=== PATIENT | male | born 1935 | race Two or more races ===

== ENCOUNTER → 2018-01-23 | Outpatient (CLI) | payer MEDICARE ==
[~2018-01-23] MED LIST: ACYC800T99 PO; AGGRENOX PO; ALBUTEROL INHALER; AML5 PO; AMLO-96 PO; AMLO-99 PO; ASP325 PO; ASPI-757 PO; ASPI81TA94 PO; BEN20 PO; BENA20TA8 PO; CLO75 PO; CLOP75TA PO; CPAP; FLU45SYR17 IM; HCTZ25 PO; HYDR-2966 PO; LEVE750T48 PO; LEVO50TA86 PO; LEVO50TA89 PO; LEVO75TA73 PO; LISI-374 PO; LISI20TA29 PO; LOSA50TA72 PO; METO-1 PO; METO-253 PO; METO25TA93 PO; OXYGENHOME INH; PNEI IJ; PRAV40TA77 PO; PRAV40TA78 PO; PRE20 PO; RAN150 PO; SIMV-1 PO; SIMV-49 PO; SIMV-54 PO; SIMV-59 PO; TRIA5T TOP; UNKNOWN BP MED; Z-PAK; [UNRECOGNIZED DRUG - CODE] PO
[2018-01-23 09:11] LABS: LDL CHOLESTEROL 61 mg/dl
== END ==
LOC: LAB 07:49
PROVIDERS: ATTEND Internal Medicine
DX: E03.9 Hypothyroidism, unspecified (principal); E78.00 Pure hypercholesterolemia, unspecified; I10 Essential (primary) hypertension
CPT/HCPCS: 36415; 82040; 82247; 82310; 82374; 82435; 82465; 82565; 82947; 83718; 84075; 84132; 84155; 84295; 84443; 84450; 84460; 84478; 84520

== ENCOUNTER 2018-01-26 17:40 | Emergency (ER) | payer MEDICARE ==
--- NOTE | 2018-01-26 17:52 | ER Report ---
History and Physical Time Seen By MD: 17:52 HPI/ROS CHIEF COMPLAINT: Fall, bruising HISTORY OF PRESENT ILLNESS: 82-year-old male patient presents to emergency room with complaint of a fall. Patient's daughter states that yesterday morning her mother heard a loud thud, she went to check on her and found him lying on the ground. They're unsure what the underlying cause of the fall was. He states that they did watch him throughout the day and then again today. He did have a seizure last night, however he does have a known seizure disorder secondary to a stroke. Patient stopped her states that he was unsteady with is moving around today. She also states he's been very tired. That is not normal for him so they brought him in for further evaluation. They have not given him any new medication. He states that he has seen his neurologist who increased his dose of his seizure medication. REVIEW OF SYSTEMS: Respiratory: No cough, no dyspnea. Cardiovascular: No chest pain, no palpitations. Gastrointestinal: No vomiting, no abdominal pain. Musculoskeletal: As noted above Allergies: Coded Allergies: No Known Drug Allergies (Verified , 01/26/18) Home Meds Active Scripts Simvastatin (SIMVASTATIN) 20 Mg Tablet, 1 TAB PO HS, #90 TAB 3 Refills Prov:MELITON MORALEZ MD 10/22/17 Losartan Potassium (LOSARTAN POTASSIUM) 50 Mg Tablet, 1 TAB PO QDAY, #90 TAB 3 Refills Prov:MELITON MORALEZ MD 10/22/17 Clopidogrel Bisulfate (CLOPIDOGREL) 75 Mg Tablet, 1 TAB PO QDAY, #90 TAB 3 Refills Prov:MELITON MORALEZ MD 06/04/17 Metoprolol Tartrate (METOPROLOL TARTRATE) 50 Mg Tab, 1 TAB PO BID, #180 TAB 3 Refills Prov:MELITON MORALEZ MD 01/28/17 Amlodipine Besylate (AMLODIPINE BESYLATE) 10 Mg Tablet, 1 TAB PO QDAY, #90 TAB 4 Refills Prov:MELITON MORALEZ MD 11/21/16 Levothyroxine Sodium (LEVOTHYROXINE SODIUM) 50 Mcg Tablet, 1 TAB PO QDAY, #90 TAB 3 Refills Prov:MELITON MORALEZ MD 10/24/16 Reported Medications Levetiracetam (LEVETIRACETAM) 750 Mg Tablet, 750 MG PO BID, TAB 5/6/18 Cpap (CPAP HOME) Inha, HS 06/12/17 Oxygen (OXYGEN) Inha, 2 L INH HS, L 04/23/16 Aspirin (ASPIRIN) 81 Mg Tab.chew, 1 TAB PO QDAY, TAB.CHEW 01/11/16 Discontinued Scripts Levetiracetam (LEVETIRACETAM) 750 Mg Tablet, 1 TAB PO BID, #180 TAB Prov:MELITON MORALEZ MD 10/10/17 Past Medical/Surgical History Patient has a past medical history of CVA, TIA, seizures, hypertension, hyperlipidemia. Patient has past surgical history of surgery to remove polyps, stents placed in back of neck, head truly blockage. Reviewed Nurses Notes: Yes Hx Smoking: No Smoking Status: Never Smoker Exposure to Second Hand Smoke?: No Hx Substance Use Disorder: No Constitutional Vital Sign - Last 24 Hours 01/26/18 01/26/18 01/26/18 01/26/18 17:45 17:52 17:55 18:00 Temp 98.4 Pulse 86 84 Resp 16 B/P (MAP) 143/80 143/80 (101) 138/83 (101) Pulse Ox 93 94 O2 Delivery Room Air 01/26/18 01/26/18 01/26/18 01/26/18 18:10 18:14 18:14 18:16 Pulse 85 82 89 93 B/P (MAP) 133/85 (101) 138/83 (101) 129/86 (100) 133/85 (101) 129/86 (100) Pulse Ox 93 01/26/18 01/26/18 01/26/18 01/26/18 18:21 18:30 18:36 18:45 Pulse 79 ??? B/P (MAP) ???/??? (1665) 143/80 (101) Pulse Ox 95 01/26/18 01/26/18 01/26/18 01/26/18 18:51 19:00 19:08 19:45 Pulse 82 85 Resp 16 B/P (MAP) 148/79 (102) 150/91 (110) 138/82 (100) Pulse Ox 94 92 O2 Delivery Room Air Physical Exam General Appearance: The patient is alert, has no immediate need for airway protection and no current signs of toxicity. ENT: Tympanic membranes are pearly-crenshaw, auditory canals are patent, mucous membranes are moist. Respiratory: Chest is non tender, lungs are clear to auscultation. Cardiac: regular rate and rhythm Gastrointestinal: Abdomen is soft and non tender, no masses, bowel sounds normal. Musculoskeletal: Neck: Neck is supple and non tender. Extremities have full range of motion and are non tender. Skin: No rashes or lesions. DIFFERENTIAL DIAGNOSIS: After history and physical exam differential diagnosis was considered for fall, dizziness, orthostatic hypotension, dehydration, [place], seizure. Medical Decision Making Data Points Result Diagram: 01/26/18180801/26/181808 Laboratory Hematology Test 01/26/18 18:09 01/26/18 19:05 Red Blood Count 5.30 M/uL (4.00-5.60) Mean Corpuscular Volume 70.7 fL (80.0-96.0) Mean Corpuscular Hemoglobin 24.1 pg (26.0-33.0) Mean Corpuscular Hemoglobin Concent 34.1 g/dL (32.0-36.0) Red Cell Distribution Width 16.3 % (11.5-14.5) Mean Platelet Volume 8.1 fL (7.2-11.1) Neutrophils (%) (Auto) 76.9 % (39.4-72.5) Lymphocytes (%) (Auto) 12.7 % (17.6-49.6) Monocytes (%) (Auto) 8.2 % (4.1-12.4) Eosinophils (%) (Auto) 1.5 % (0.4-6.7) Basophils (%) (Auto) 0.7 % (0.3-1.4) Nucleated RBC Relative Count (auto) 0.0 /100WBC Neutrophils # (Auto) 5.8 K/uL (2.0-7.4) Lymphocytes # (Auto) 1.0 K/uL (1.3-3.6) Monocytes # (Auto) 0.6 K/uL (0.3-1.0) Eosinophils # (Auto) 0.1 K/uL (0.0-0.5) Basophils # (Auto) 0.0 K/uL (0.0-0.1) Nucleated RBC Absolute Count (auto) 0.00 K/uL Sodium Level 135 mmol/L (137-145) Potassium Level 3.6 mmol/L (3.5-5.0) Chloride Level 100 mmol/L (98-107) Carbon Dioxide Level 23 mmol/L (22-30) Blood Urea Nitrogen 18 mg/dl (9-21) Creatinine 1.00 mg/dl (0.66-1.25) Glomerular Filtration Rate Calc > 60.0 Random Glucose 91 mg/dl (75-110) Calcium Level 8.9 mg/dl (8.4-10.2) Total Bilirubin 0.7 mg/dl (0.2-1.3) Aspartate Amino Transf (AST/SGOT) 26 U/L (0-35) Alanine Aminotransferase (ALT/SGPT) 21 U/L (0-56) Alkaline Phosphatase 64 U/L (0-126) Troponin I < 0.012 ng/ml Total Protein 6.3 gm/dl (6.3-8.2) Albumin 3.6 g/dl (3.5-5.0) Urine Color Straw Urine Clarity Clear Urine pH 6.0 pH (4.8-9.5) Urine Specific [facility] [place] 1.004 Urine Protein Negative mg/dL (NEGATIVE) Urine Glucose (UA) Negative mg/dL (NEGATIVE) Urine Ketones Negative mg/dL (NEGATIVE) Urine Blood Negative (NEGATIVE) Urine Nitrite Negative (NEGATIVE) Urine Bilirubin Negative (NEGATIVE) Urine Urobilinogen Negative mg/dL (0.2-1.9) Urine Leukocyte Esterase Negative (NEGATIVE) Urine RBC None /HPF (0-2/HPF) Urine WBC <1 /HPF (0-5/HPF) Urine Squamous Epithelial Cells Few /LPF (</=FEW) Urine Bacteria Negative /HPF (NONE-FEW) Urine Mucus None /HPF (NONE-FEW) Chemistry Test 01/26/18 18:09 01/26/18 19:05 White Blood Count 7.5 k/uL (4.5-11.0) Red Blood Count 5.30 M/uL (4.00-5.60) Hemoglobin 12.8 g/dL (14.0-18.0) Hematocrit 37.5 % (42.0-52.0) Mean Corpuscular Volume 70.7 fL (80.0-96.0) Mean Corpuscular Hemoglobin 24.1 pg (26.0-33.0) Mean Corpuscular Hemoglobin Concent 34.1 g/dL (32.0-36.0) Red Cell Distribution Width 16.3 % (11.5-14.5) Platelet Count 181 K/uL (150-450) Mean Platelet Volume 8.1 fL (7.2-11.1) Neutrophils (%) (Auto) 76.9 % (39.4-72.5) Lymphocytes (%) (Auto) 12.7 % (17.6-49.6) Monocytes (%) (Auto) 8.2 % (4.1-12.4) Eosinophils (%) (Auto) 1.5 % (0.4-6.7) Basophils (%) (Auto) 0.7 % (0.3-1.4) Nucleated RBC Relative Count (auto) 0.0 /100WBC Neutrophils # (Auto) 5.8 K/uL (2.0-7.4) Lymphocytes # (Auto) 1.0 K/uL (1.3-3.6) Monocytes # (Auto) 0.6 K/uL (0.3-1.0) Eosinophils # (Auto) 0.1 K/uL (0.0-0.5) Basophils # (Auto) 0.0 K/uL (0.0-0.1) Nucleated RBC Absolute Count (auto) 0.00 K/uL Glomerular Filtration Rate Calc > 60.0 Calcium Level 8.9 mg/dl (8.4-10.2) Total Bilirubin 0.7 mg/dl (0.2-1.3) Aspartate Amino Transf (AST/SGOT) 26 U/L (0-35) Alanine Aminotransferase (ALT/SGPT) 21 U/L (0-56) Alkaline Phosphatase 64 U/L (0-126) Troponin I < 0.012 ng/ml Total Protein 6.3 gm/dl (6.3-8.2) Albumin 3.6 g/dl (3.5-5.0) Urine Color Straw Urine Clarity Clear Urine pH 6.0 pH (4.8-9.5) Urine Specific [facility] [place] 1.004 Urine Protein Negative mg/dL (NEGATIVE) Urine Glucose (UA) Negative mg/dL (NEGATIVE) Urine Ketones Negative mg/dL (NEGATIVE) Urine Blood Negative (NEGATIVE) Urine Nitrite Negative (NEGATIVE) Urine Bilirubin Negative (NEGATIVE) Urine Urobilinogen Negative mg/dL (0.2-1.9) Urine Leukocyte Esterase Negative (NEGATIVE) Urine RBC None /HPF (0-2/HPF) Urine WBC <1 /HPF (0-5/HPF) Urine Squamous Epithelial Cells Few /LPF (</=FEW) Urine Bacteria Negative /HPF (NONE-FEW) Urine Mucus None /HPF (NONE-FEW) Urinalysis Test 01/26/18 19:05 Urine Color Straw Urine Clarity Clear Urine pH 6.0 pH (4.8-9.5) Urine Specific [facility] [place] 1.004 Urine Protein Negative mg/dL (NEGATIVE) Urine Glucose (UA) Negative mg/dL (NEGATIVE) Urine Ketones Negative mg/dL (NEGATIVE) Urine Blood Negative (NEGATIVE) Urine Nitrite Negative (NEGATIVE) Urine Bilirubin Negative (NEGATIVE) Urine Urobilinogen Negative mg/dL (0.2-1.9) Urine Leukocyte Esterase Negative (NEGATIVE) Urine RBC None /HPF (0-2/HPF) Urine WBC <1 /HPF (0-5/HPF) Urine Squamous Epithelial Cells Few /LPF (</=FEW) Urine Bacteria Negative /HPF (NONE-FEW) Urine Mucus None /HPF (NONE-FEW) EKG/Imaging EKG Interpretation 12 lead EKG: Rhythm: Sinus rhythm with first-degree AV block [place]: normal QRS: normal ST segments: normal Imaging Examination: CHEST PA AND LAT Comparison: 01/11/2016. History: fall, dizzy Findings: Cardiac and hilar contour size is within normal limits. Mild chronic blunting of the right costophrenic angle. No new or enlarging consolidation or nodule. No peribronchial inflammation. No pneumothorax, edema, or effusion. Thoracic aortic atherosclerosis. No acute osseous abnormality. IMPRESSION: No findings of acute cardiopulmonary disease. Report Dictated By: Ryan Mcghee MD at 01/26/2018 7:16 PM Report E-Signed By: Ryan Mcghee MD at 01/26/2018 7:17 PM EXAMINATION: CT HEAD WITHOUT CONTRAST COMPARISON: 05/26/2013. HISTORY: Fall. Dizziness. Prior stroke. PROCEDURE: Noncontrast CT from the vertex through the skull base. One of the following dose optimization techniques was utilized in the performance of this exam: Automated exposure control; adjustment of the mA and/or kV according to the patient's size; or use of an iterative reconstruction technique. Specific details can be referenced in the facility's radiology CT exam operational policy. FINDINGS: Brain volume: Mild/moderate global volume loss. Hemorrhage/extra-axial fluid: None. Mass effect/midline shift/edema: None. Ischemia: No acute crenshaw-white differentiation loss. Ventricles and basal cisterns: Within normal limits. Posterior fossa: Mild asymmetric left cerebellar encephalomalacia as before. Vessels: Carotid and vertebrobasilar atherosclerosis. Right vertebral and basilar artery stents. Calvarium, skull base, and scalp: Negative. Visualized sinuses and orbits: Within normal limits. IMPRESSION: 1. No intracranial hemorrhage or mass effect. 2. No CT findings of acute ischemia. Report Dictated By: Ryan Mcghee MD at 01/26/2018 7:10 PM Report E-Signed By: Ryan Mcghee MD at 01/26/2018 7:14 PM Examination: HIP LEFT Comparison: None. History: fall, dizzy Findings: The pelvic ring is intact. Pubic symphysis and sacroiliac joint alignment is maintained. Arcuate lines of the sacrum are intact. Hip alignment is within normal limits and symmetric. Minimal hip joint space loss. The proximal left femur is intact. No femoral head or neck fracture. No soft tissue abnormality. IMPRESSION: No pelvis or left hip fracture or malalignment. Report Dictated By: Ryan Mcghee MD at 01/26/2018 7:17 PM Report E-Signed By: Ryan Mcghee MD at 01/26/2018 7:20 PM ED Course/Re-evaluation ED Course Patient was admitted to exam room, history and physical were obtained. Differential diagnoses were considered. On examination patient is alert and oriented, lungs are clear, heart is regular, patient does have bruising to the left buttock. A CBC, CMP, urinalysis, troponin, EKG, chest x-ray, CT scan of the head, x-ray of the left pelvis were done. The CBC, CMP, urinalysis was unremarkable, CT scan of the head was negative. EKG showed a sinus rhythm with a first-degree AV block, chest x-ray showed no acute cardiopulmonary processes, x-ray of the pelvis was negative. Troponin was also negative. I discussed findings with the patient has family. We discussed that the patient did have some tenderness to the left buttock, with those likely where he has some swelling and bruising into the muscle. LDL seemed normal I believe that him being limited states today and more tired is likely due to seizure. We'll go ahead and discharge patient home. He is follow-up with neurology his previous schedule. They're to return to emergency room if condition worsens. I discussed this with the patient and family who verbalized understanding and agreement with plan. Decision to Disposition Date: January 26, 2018 Decision to Disposition Time: 19:39 Depart Departure Latest Vital Signs Vital Signs Date Time Temp Pulse Resp B/P (MAP) Pulse Ox O2 Delivery O2 Flow Rate FiO2 01/26/18 19:45 85 16 138/82 (100) 92 Room Air 01/26/18 17:45 98.4 Impression: Primary Impression: Contusion, hip Additional Impressions: Fall Seizures Condition: Improved Disposition: HOME OR SELF-CARE Referrals: MELITON MORALEZ MD (PCP) Patient Instructions: Contusion in Adults (ED) Additional Instructions: Continue with current medications. Follow up with your neurologist, call tomorrow and let them know you were seen in the ER and see if they want you in sooner. Limit activity by how you are feeling. Get plenty of rest. Return to the ER if condition worsens. Follow up with your primary care provider in the next week. Problem Qualifiers Primary Impression: Contusion, hip Encounter type: initial encounter Laterality: left Qualified Codes: S70.02XA - Contusion of left hip, initial encounter Additional Impressions: Fall Encounter type: initial encounter Qualified Codes: W19.XXXA - Unspecified fall, initial encounter CHIQUITA TAVARES January 26, 2018 17:52
[2018-01-26] MEDS ORDERED: LEVE750T48 PO (17:58)
--- NOTE | 2018-01-26 18:09 | EKG ---
FACILITY: [facility] - [place] PATIENT NAME: FILIBERTO SCOTT : [id number] MR: [id number] V: [id number] EXAM DATE: ORDERING PHYSICIAN: CHIQUITA TAVARES TECHNOLOGIST: AMY Test Reason : ALTERED LOC Blood Pressure : / mmHG Vent. Rate : 076 BPM Atrial Rate : 076 BPM P-R Int : 236 ms QRS Dur : 090 ms QT Int : 362 ms P-R-T Axes : 039 -06 009 degrees QTc Int : 407 ms Sinus rhythm with 1st degree AV block Otherwise normal ECG When compared with ECG of 26-MAY-2013 09:17, QRS duration has decreased Confirmed by DERIAN LUTHER ([id number]) on 01/27/2018 7:10:13 AM Referred By: ANUSHA Confirmed By:DERIAN LUTHER
[2018-01-26 18:24] LABS: PLATELET COUNT, AUTOMATED 181 K/uL (150-450)
--- NOTE | 2018-01-26 19:16 | RADIOLOGY IMAGING REPORT ---
FACILITY: [facility] PATIENT NAME: Kwabena Zambrano : 1935 MR: [id number] V: [id number] EXAM DATE: ORDERING PHYSICIAN: CHIQUITA TAVARES TECHNOLOGIST: Location: [facility] [place] Patient: Kwabena Zambrano : 1935 Visit/Account:[id number] Date of Sevice: 01/26/2018 EXAMINATION: CT HEAD WITHOUT CONTRAST COMPARISON: 05/26/2013. HISTORY: Fall. Dizziness. Prior stroke. PROCEDURE: Noncontrast CT from the vertex through the skull base. One of the following dose optimizat ion techniques was utilized in the performance of this exam: Automated exposure control; adjustment o f the mA and/or kV according to the patient's size; or use of an iterative reconstruction technique. Specific details can be referenced in the facility's radiology CT exam operational policy. FINDINGS: Brain volume: Mild/moderate global volume loss. Hemorrhage/extra-axial fluid: None. Mass effect/midline shift/edema: None. Ischemia: No acute crenshaw-white differentiation loss. Ventricles and basal cisterns: Within normal limits. Posterior fossa: Mild asymmetric left cerebellar encephalomalacia as before. Vessels: Carotid and vertebrobasilar atherosclerosis. Right vertebral and basilar artery stents. Calvarium, skull base, and scalp: Negative. Visualized sinuses and orbits: Within normal limits. IMPRESSION: 1. No intracranial hemorrhage or mass effect. 2. No CT findings of acute ischemia. Report Dictated By: Ryan Mcghee MD at 01/26/2018 7:10 PM Report E-Signed By: Ryan Mcghee MD at 01/26/2018 7:14 PM WSN:[id number]
--- NOTE | 2018-01-26 19:20 | RADIOLOGY IMAGING REPORT ---
FACILITY: [facility] - [place] PATIENT NAME: Kwabena Zambrano : 1935 MR: [id number] V: [id number] EXAM DATE: ORDERING PHYSICIAN: CHIQUITA TAVARES TECHNOLOGIST: Location: [facility] Patient: Kwabena Zambrano : 1935 Visit/Account:[id number] Date of Sevice: 01/26/2018 Examination: CHEST PA AND LAT Comparison: 01/11/2016. History: fall, dizzy Findings: Cardiac and hilar contour size is within normal limits. Mild chronic blunting of the right costophrenic angle. No new or enlarging consolidation or nodule. No peribronchial inflammation. No pn eumothorax, edema, or effusion. Thoracic aortic atherosclerosis. No acute osseous abnormality. IMPRESSION: No findings of acute cardiopulmonary disease. Report Dictated By: Ryan Mcghee MD at 01/26/2018 7:16 PM Report E-Signed By: Ryan Mcghee MD at 01/26/2018 7:17 PM WSN:[id number]
--- NOTE | 2018-01-26 19:23 | RADIOLOGY IMAGING REPORT ---
FACILITY: [facility] PATIENT NAME: Kwabena Zambrano : 1935 MR: [id number] V: [id number] EXAM DATE: ORDERING PHYSICIAN: CHIQUITA TAVARES TECHNOLOGIST: Location: [facility] Patient: Kwabena Zambrano : 1935 Visit/Account:[id number] Date of Sevice: 01/26/2018 Examination: HIP LEFT Comparison: None. History: fall, dizzy Findings: The pelvic ring is intact. Pubic symphysis and sacroiliac joint alignment is maintained. Ar arash lines of the sacrum are intact. Hip alignment is within normal limits and symmetric. Minimal hi p joint space loss. The proximal left femur is intact. No femoral head or neck fracture. No soft tiss ue abnormality. IMPRESSION: No pelvis or left hip fracture or malalignment. Report Dictated By: Ryan Mcghee MD at 01/26/2018 7:17 PM Report E-Signed By: Ryan Mcghee MD at 01/26/2018 7:20 PM WSN:[id number]
[2018-01-26 19:45] VITALS: BP 138/82
== END 2018-01-26 19:51 | disposition home or self-care (01) ==
LOC: ER 17:54
DX: S70.02XA Contusion of left hip, initial encounter (principal); W19.XXXA Unspecified fall, initial encounter
CPT/HCPCS: 70450; 71046; 81001; 82040; 82247; 82310; 82374; 82435; 82565; 82947; 84075; 84132; 84155; 84295; 84450; 84460; 84484; 84520; 85025; 93005; 99284

== ENCOUNTER 2018-10-10 09:14 | Emergency (ER) | payer MEDICARE ==
[~2018-10-10 09:14] MED LIST changes: +AMLO-125 PO; +AMLO-127 PO; -AMLO-96 PO; -AMLO-99 PO; +BENA20TA64 PO; -BENA20TA8 PO; -LOSA50TA72 PO; +LOSA50TA80 PO; +SIMV-117 PO; -SIMV-59 PO
--- NOTE | 2018-10-10 09:20 | ER Report ---
History and Physical Time Seen By MD: 09:19 HPI/ROS CHIEF COMPLAINT: Fall HISTORY OF PRESENT ILLNESS: Patient is an 83-year-old male with multiple medical problems including history of prior stroke status post stroke patient with seizures. Patient had a slip and fall on the ice today with a fall on outstretched hand. Patient is right-hand dominant injury to left hand he has an obvious dinner fork deformity to the arm. Also complaining of low back pain he did not strike his head however he is on Plavix. REVIEW OF SYSTEMS: Constitutional: No fever, no chills. Eyes: No discharge. ENT: No sore throat. Cardiovascular: No chest pain, no palpitations. Respiratory: No cough, no shortness of breath. Gastrointestinal: No abdominal pain, no vomiting. Genitourinary: No hematuria. Musculoskeletal: No back pain, left wrist pain Skin: No rashes. Neurological: No headache. Allergies: Coded Allergies: No Known Drug Allergies (Verified , 10/10/18) Home Meds Active Scripts Hydrocodone Bit/Acetaminophen (HYDROCODON-ACETAMINOPHEN 5-325) 1 Each Tablet, 1 EACH PO Q6H for PAIN, #25 TAB 0 Refills Prov:MAYLIN RAMÍREZ MD 10/10/18 Simvastatin (SIMVASTATIN) 20 Mg Tablet, 1 TAB PO HS, #90 TAB 3 Refills Prov:MELITON MORALEZ MD 10/08/18 Clopidogrel Bisulfate (CLOPIDOGREL) 75 Mg Tablet, 1 TAB PO QDAY, #90 TAB 3 Refills Prov:MELITON MORALEZ MD 05/29/18 Levothyroxine Sodium (LEVOTHYROXINE SODIUM) 50 Mcg Tablet, 1 TAB PO QDAY, #90 TAB 2 Refills Prov:MELITON MORALEZ MD 02/21/18 Amlodipine Besylate (AMLODIPINE BESYLATE) 10 Mg Tablet, 1 TAB PO QDAY, #90 TAB 3 Refills Prov:MELITON MORALEZ MD 02/20/18 Metoprolol Tartrate (METOPROLOL TARTRATE) 50 Mg Tab, 1 TAB PO BID, #180 TAB 3 Refills Prov:MELITON MORALEZ MD 02/04/18 Losartan Potassium (LOSARTAN POTASSIUM) 50 Mg Tablet, 1 TAB PO QDAY, #90 TAB 3 Refills Prov:MELITON MORALEZ MD 10/22/17 Reported Medications Lacosamide (VIMPAT) 100 Mg Tab, 100 MG PO BID, TAB 10/10/18 Levetiracetam (LEVETIRACETAM) 750 Mg Tablet, 2 TAB PO BID, TAB 01/26/18 Oxygen (OXYGEN) Inha, 2 L INH HS, L 04/23/16 Aspirin (ASPIRIN) 81 Mg Tab.chew, 1 TAB PO QDAY, TAB.CHEW 01/11/16 Discontinued Reported Medications Cpap (CPAP HOME) Inha, HS 06/12/17 Past Medical/Surgical History Past medical history for seizures post stroke, 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 History of hyperlipidemia, hypertension, vertebral artery dissection status post stenting, anemia, coronary stenting, TURP Hx Smoking: No Smoking Status: Never Smoker Exposure to Second Hand Smoke?: No Hx Substance Use Disorder: No Constitutional Vital Sign - Last 24 Hours 10/10/18 10/10/18 10/10/18 10/10/18 09:19 09:30 09:30 09:45 Temp 97.7 Pulse 62 59 Resp 16 B/P (MAP) 179/98 161/87 (111) Pulse Ox 92 91 93 O2 Delivery Room Air O2 Flow Rate 1.0 10/10/18 10/10/18 10/10/18 10/10/18 10:00 10:30 10:45 11:00 Pulse 49 Resp 10 24 10 B/P (MAP) 149/79 (102) 151/76 (101) Pulse Ox 94 93 92 94 10/10/18 10/10/18 10/10/18 10/10/18 11:15 11:27 11:30 11:35 Pulse 56 57 60 64 Resp 18 12 16 15 B/P (MAP) 151/76 (101) 166/98 (120) 175/93 (120) Pulse Ox 92 93 94 91 10/10/18 10/10/18 10/10/18 10/10/18 11:40 11:45 11:50 11:55 Pulse 63 61 63 58 Resp 17 12 13 14 B/P (MAP) 174/94 (120) 171/94 (119) 167/98 (121) 161/86 (111) Pulse Ox 93 92 92 91 Physical Exam General/Constitutional: Patient is awake, alert, nontoxic and in no acute respiratory distress. Head: Normocephalic and atraumatic. Eyes: Conjunctival clear, Pupils are equal and reactive to light. Extraocular muscles are intact and symmetrical. Sclera are clear and anicteric. Ears:External canals are clear. Tympanic membranes are clear with normal landmarks and light reflex. Nares: No rhinorrhea or bleeding. Turbinates are pink and moist. Oropharyngeal: Mucous membranes are moist. There is no pharyngeal erythema or exudate. There are no palatal petechiae. Uvula is midline and symmetrical. Neck: Supple, no adenopathy. Cardiovascular: Heart is regular rate and rhythm without audible murmurs, rubs or gallops. Pulmonary: Lungs are clear to auscultation bilaterally. There are no wheezes, rales, or rhonchi. Chest rise is symmetrical Abdomen: Soft, nontender, no guarding or peritoneal signs. Extremities: No gross deformities, No peripheral cyanosis. Able to move all 4 extremities. Neuro: Alert and oriented X3, Cranial nerves 2 thru 12 are intact and symmetrical. Patient has normal gait. Skin: No rashes, skin is warm dry and well perfused. Medical Decision Making Data Points Result Diagram: 10/10/18 0000 10/10/18 0000 Laboratory Hematology Test 10/10/18 00:00 Red Blood Count 6.60 M/uL (4.00-5.60) Mean Corpuscular Volume 72.5 fL (80.0-96.0) Mean Corpuscular Hemoglobin 23.4 pg (26.0-33.0) Mean Corpuscular Hemoglobin Concent 32.3 g/dL (32.0-36.0) Red Cell Distribution Width 15.8 % (11.5-14.5) Mean Platelet Volume 8.6 fL (7.2-11.1) Neutrophils (%) (Auto) 72.7 % (39.4-72.5) Lymphocytes (%) (Auto) 18.1 % (17.6-49.6) Monocytes (%) (Auto) 6.2 % (4.1-12.4) Eosinophils (%) (Auto) 2.2 % (0.4-6.7) Basophils (%) (Auto) 0.8 % (0.3-1.4) Nucleated RBC Relative Count (auto) 0.1 /100WBC Neutrophils # (Auto) 4.8 K/uL (2.0-7.4) Lymphocytes # (Auto) 1.2 K/uL (1.3-3.6) Monocytes # (Auto) 0.4 K/uL (0.3-1.0) Eosinophils # (Auto) 0.1 K/uL (0.0-0.5) Basophils # (Auto) 0.1 K/uL (0.0-0.1) Nucleated RBC Absolute Count (auto) 0.01 K/uL Prothrombin Time 13.9 seconds (12.0-14.4) Prothromb Time International Ratio 1.07 Activated Partial Thromboplast Time 41 seconds (23-35) Sodium Level 140 mmol/L (137-145) Potassium Level 3.6 mmol/L (3.5-5.0) Chloride Level 105 mmol/L (98-107) Carbon Dioxide Level 26 mmol/L (22-30) Blood Urea Nitrogen 17 mg/dl (9-21) Creatinine 1.00 mg/dl (0.66-1.25) Glomerular Filtration Rate Calc > 60.0 Random Glucose 83 mg/dl (75-110) Calcium Level 8.8 mg/dl (8.4-10.2) Total Bilirubin 0.9 mg/dl (0.2-1.3) Aspartate Amino Transf (AST/SGOT) 44 U/L (0-35) Alanine Aminotransferase (ALT/SGPT) 38 U/L (0-56) Alkaline Phosphatase 72 U/L (0-126) Total Protein 7.5 g/dl (6.3-8.2) Albumin 4.2 g/dl (3.5-5.0) Chemistry Test 10/10/18 00:00 White Blood Count 6.6 k/uL (4.5-11.0) Red Blood Count 6.60 M/uL (4.00-5.60) Hemoglobin 15.4 g/dL (14.0-18.0) Hematocrit 47.8 % (42.0-52.0) Mean Corpuscular Volume 72.5 fL (80.0-96.0) Mean Corpuscular Hemoglobin 23.4 pg (26.0-33.0) Mean Corpuscular Hemoglobin Concent 32.3 g/dL (32.0-36.0) Red Cell Distribution Width 15.8 % (11.5-14.5) Platelet Count 202 K/uL (150-450) Mean Platelet Volume 8.6 fL (7.2-11.1) Neutrophils (%) (Auto) 72.7 % (39.4-72.5) Lymphocytes (%) (Auto) 18.1 % (17.6-49.6) Monocytes (%) (Auto) 6.2 % (4.1-12.4) Eosinophils (%) (Auto) 2.2 % (0.4-6.7) Basophils (%) (Auto) 0.8 % (0.3-1.4) Nucleated RBC Relative Count (auto) 0.1 /100WBC Neutrophils # (Auto) 4.8 K/uL (2.0-7.4) Lymphocytes # (Auto) 1.2 K/uL (1.3-3.6) Monocytes # (Auto) 0.4 K/uL (0.3-1.0) Eosinophils # (Auto) 0.1 K/uL (0.0-0.5) Basophils # (Auto) 0.1 K/uL (0.0-0.1) Nucleated RBC Absolute Count (auto) 0.01 K/uL Prothrombin Time 13.9 seconds (12.0-14.4) Prothromb Time International Ratio 1.07 Activated Partial Thromboplast Time 41 seconds (23-35) Glomerular Filtration Rate Calc > 60.0 Calcium Level 8.8 mg/dl (8.4-10.2) Total Bilirubin 0.9 mg/dl (0.2-1.3) Aspartate Amino Transf (AST/SGOT) 44 U/L (0-35) Alanine Aminotransferase (ALT/SGPT) 38 U/L (0-56) Alkaline Phosphatase 72 U/L (0-126) Total Protein 7.5 g/dl (6.3-8.2) Albumin 4.2 g/dl (3.5-5.0) Coagulation Test 10/10/18 00:00 Prothrombin Time 13.9 seconds Prothromb Time International Ratio 1.07 Activated Partial Thromboplast Time 41 seconds EKG/Imaging Imaging FACILITY: [facility] PATIENT NAME: Kwabena Zambrano : 1935 MR: [id number] V: [id number] EXAM DATE: ORDERING PHYSICIAN: MAYLIN RAMÍREZ TECHNOLOGIST: Location: [facility] Patient: Kwabena Zambrano : 1935 Visit/Account:[id number] Date of Sevice: 10/10/2018 Exam type: XR WRIST 3 OR MORE VIEWS LT History: Fall with left wrist pain and deformity Comparison: Left forearm performed today. Findings: Three views the left wrist were submitted. There is a severely comminuted impacted intra-articular fracture through the distal left radial metaphysis and epiphysis with dorsal angulation and dorsal displacement of the distal fracture fragments.. There appears to be avulsion of ulnar styloid. Incidentally noted are vascular calcifications in the adjacent soft tissues Fracture through the IMPRESSION: 1. Severely comminuted impacted intra-articular fracture to the distal left radius with dorsal regulation dorsal displacement distal fragments Avulsion of the ulnar styloid Report Dictated By: Lata Cobian MD at 10/10/2018 11:09 AM Report E-Signed By: Lata Cobian MD at 10/10/2018 11:11 AM WSN:[email or web address] FACILITY: [facility] PATIENT NAME: Kwabena Zambrano : 1935 MR: [id number] V: [id number] EXAM DATE: ORDERING PHYSICIAN: MAYLIN RAMÍREZ TECHNOLOGIST: Location: [facility] Patient: Kwabena Zambrano : 1935 Visit/Account:[id number] Date of Sevice: 10/10/2018 EXAMINATION: CT head without IV contrast HISTORY: Fall, on Plavix. COMPARISON: CT head from 01/26/2018. TECHNIQUE: Contiguous axial images were obtained from the skull base to the vertex without intravenous contrast. Sagittal and coronal reformatted images are also submitted. One of the following dose optimization techniques was utilized in the perform ance of this exam: Automated exposure control; adjustment of the mA and/or kV according to the patient's size; or use of an iterative reconstruction technique. Specific details can be referenced in the facility's radiology CT exam operational policy. FINDINGS: Brain volume: Mild generalized atrophy with associated concordant prominence of the ventricular system. Ventricles: Normal. Acute ischemic changes: None. Hemorrhage: No acute intracranial hemorrhage. Masses/edema: None. Richter-white: Focal gliosis in the central david is unchanged. A few small patchy chronic infarcts in the left cerebellum are unchanged. White matter: Normal. Vessels: Calcified plaque of the vertebral arteries and carotid siphons at the skull base. There is a stent in the intradural right vertebral artery, extending into the basilar artery, unchanged. Extra-axial: Negative. Calvarium/scalp: No acute fracture. Skull base/visualized face: Negative. Visualized sinuses/orbits: Negative. IMPRESSION: 1. No acute fracture, hemorrhage or intracranial mass lesion. No CT evidence of acute infarct. 2. Chronic infarcts in the david and left cerebellum are unchanged. Report Dictated By: Melissa Castorena MD at 10/10/2018 10:31 AM Report E-Signed By: Melissa Castorena MD at 10/10/2018 10:34 AM WSN:[id number] FACILITY: [facility] PATIENT NAME: Kwabena Zambrano : 1935 MR: [id number] V: [id number] EXAM DATE: ORDERING PHYSICIAN: MAYLIN RAMÍREZ TECHNOLOGIST: Location: [facility] Patient: Kwabena Zambrano : 1935 Visit/Account:[id number] Date of Sevice: 10/10/2018 Exam type: XR WRIST 2 VWS LT History: Post reduction Comparison: October 10, 2018 at 10:17 AM. Findings: Two views of the left wrist were submitted. Again noted is the severely comminuted impacted intra-articular fracture to the distal left radius which has been reduced in improved anatomic alignment. Avulsion of the ulnar styloid also again noted IMPRESSION: 1. There has been interval reduction of the severely comminuted impacted intra- articular fracture through the distal left radius which has been reduced in improved anatomic alignment Report Dictated By: Lata Cobian MD at 10/10/2018 11:58 AM Report E-Signed By: Lata Cobian MD at 10/10/2018 11:59 AM WSN:[email or web address] FACILITY: [facility] PATIENT NAME: Kwabena Zambrano : 1935 MR: [id number] V: [id number] EXAM DATE: [id number] ORDERING PHYSICIAN: MAYLIN RAMÍREZ TECHNOLOGIST: Location: [facility] Patient: Kwabena Zambrano : 1935 Visit/Account:[id number] Date of Sevice: 10/10/2018 Exam type: XR WRIST 2 VWS LT History: post splint placement Comparison: October 10, 2018 at 11:31 AM. Findings: Two views the left wrist were submitted in fiberglass casting material. Again noted is the comminuted intraarticular fracture through the distal left radius which appears unchanged in alignment when compared to the postreduction images. Avulsion of the left ulnar styloid again noted IMPRESSION: 1. Left wrist is viewed through fiberglass casting material. The comminuted intra-articular fracture through the distal left radius appears unchanged in alignment when compared to the postreduction views. Avulsion of the ulnar st yloid also again noted Report Dictated By: Lata Cobian MD at 10/10/2018 11:59 AM Report E-Signed By: Lata Cobian MD at 10/10/2018 12:01 PM WSN:[email or web address] FACILITY: [facility] PATIENT NAME: Kwabena Zambrano : 1935 MR: [id number] V: [id number] EXAM DATE: [id number] ORDERING PHYSICIAN: MAYLIN RAMÍREZ TECHNOLOGIST: Location: [facility] Patient: Kwabena Zambrano : 1935 Visit/Account:[id number] Date of Sevice: 10/10/2018 Exam type: L-SPINE 2 OR 3 VIEW History: Fall with back pain Comparison: None. Findings: There are five nonrib-bearing lumbar-type vertebral bodies present. There is a mild compression fracture involving the super endplate of L1. No subluxations are seen. There is mild disc space narrowing at L3-4 and L4-5 and L5-S1. Mild vascular calcifications are incidentally noted in the abdominal aorta. There appears to be a moderate amount of fecal material throughout colon which can be seen with constipation IMPRESSION: 1. There is mild compression fracture along the superior endplate of L1 Moderate amount of fecal material throughout colon which can be seen with constipation Report Dictated By: Lata Cobian MD at 10/10/2018 12:43 PM Report E-Signed By: Lata Cobian MD at 10/10/2018 12:45 PM WSN:[email or web address] ED Course/Re-evaluation Clinical Indication for ER IV: IV Access ED Course Procedure: Procedural sedation. A pre-sedation evaluation was completed on the patient at what time 1100. Patient is an appropriate candidate for procedural sedation. The risks of the sedation were discussed with the patient and family A time out was completed. The patient was sedated with 35 mg of ketamine and 25 mg of propofol. The patient was monitored with continuous pulse oximetry and playground monitor. There were no complications and no significant hypoxemia. I remained at the bedside for the sedation. The total time I spent in the procedural sedation was 30 minutes Procedure: Fracture reduction. After review of the X-rays I determined that a reduction was required for improved terminal carman function. The distal radius was reduced using finger traps traction and manipulation without complications. A sugar tong splint was applied. Post reduction the patient's neurovascular exam is normal. Post reduction x-ray demonstrates improvement in fracture with an acceptable reduction of the fracture. The procedure was performed by myself.. Re-evaluation 10/10/2018 12:15:07 pm patient with improved anatomical alignment post reduction. I placed in splint neurovascularly intact. We will discharge home on pain medications and instructions to follow-up with orthopedics. Decision to Disposition Date: Oct 10, 2018 Decision to Disposition Time: 13:03 Depart Departure Latest Vital Signs Vital Signs Date Time Temp Pulse Resp B/P (MAP) Pulse Ox O2 Delivery O2 Flow Rate FiO2 10/10/18 11:55 58 14 161/86 (111) 91 10/10/18 09:30 1.0 10/10/18 09:19 97.7 Room Air Impression: Primary Impression: Wrist fracture, closed Additional Impression: Compression fracture Condition: Improved Disposition: HOME OR SELF-CARE Referrals: MELITON MORALEZ MD (PCP) BRAD BARONE MD Call within the next 24 hours to schedule a follow-up appointment for evaluation and definitive treatment of the wrist fracture New Scripts Hydrocodone Bit/Acetaminophen (HYDROCODON-ACETAMINOPHEN 5-325) 1 Each Tablet 1 EACH PO Q6H for PAIN, #25 TAB 0 Refills Prov: MAYLIN RAMÍREZ MD 10/10/18 Patient Instructions: Splint Care (DC), Wrist Fracture in Adults (ED) Problem Qualifiers Primary Impression: Wrist fracture, closed Encounter type: initial encounter Laterality: left Qualified Codes: S62.102A - Fracture of unspecified carpal bone, left wrist, initial encounter for closed fracture MAYLIN RAMÍREZ MD Oct 10, 2018 09:20
[2018-10-10] MEDS ORDERED: LAC100PT PO (09:28)
[2018-10-10] MEDS ORDERED: fentaNYL CITR 100 MCG/2 ML AMP IVP ONE (09:40)
[2018-10-10] MEDS ORDERED: ONDANSETRON 4 MG/2 ML VIAL IVP ONE (09:40)
[2018-10-10] MEDS ORDERED: NS(*) 0.9% 1000 ML BAG 1,000 ML IV ONE (09:40)
[2018-10-10 09:45] LABS: PLATELET COUNT, AUTOMATED 202 K/uL (150-450)
[2018-10-10 09:49] LABS: INR 1.07
--- NOTE | 2018-10-10 10:39 | RADIOLOGY IMAGING REPORT ---
[place] [facility] [place] Kwabena Zambr[place] : 1935 MR: [id number] V: [id number] EXAM DATE: ORDERING PHYSICIAN: MAYLIN RAMÍREZ TECHNOLOGIST: Location: [facility] Patient: Kwabena Zambrano : 1935 Visit/Account:[id number] Date of Sevice: 10/10/2018 EXAMINATION: CT head without IV contrast HISTORY: Fall, on Plavix. COMPARISON: CT head from 01/26/2018. TECHNIQUE: Contiguous axial images were obtained from the skull base to the vertex without intraven ous contrast. Sagittal and coronal reformatted images are also submitted. One of the following dose optimization techniques was utilized in the performance of this exam: Autom ated exposure control; adjustment of the mA and/or kV according to the patient's size; or use of an i terative reconstruction technique. Specific details can be referenced in the facility's radiology C T exam operational policy. FINDINGS: Brain volume: Mild generalized atrophy with associated concordant prominence of the ventricular syst em. Ventricles: Normal. Acute ischemic changes: None. Hemorrhage: No acute intracranial hemorrhage. Masses/edema: None. Richter-white: Focal gliosis in the central david is unchanged. A few small patchy chronic infarcts in t he left cerebellum are unchanged. White matter: Normal. Vessels: Calcified plaque of the vertebral arteries and carotid siphons at the skull base. There is a stent in the intradural right vertebral artery, extending into the basilar artery, unchanged. Extra-axial: Negative. Calvarium/scalp: No acute fracture. Skull base/visualized face: Negative. Visualized sinuses/orbits: Negative. IMPRESSION: 1. No acute fracture, hemorrhage or intracranial mass lesion. No CT evidence of acute infarct. 2. Chronic infarcts in the david and left cerebellum are unchanged. Report Dictated By: Melissa Castorena MD at 10/10/2018 10:31 AM Report E-Signed By: Melissa Castorena MD at 10/10/2018 10:34 AM WSN:[id number]
[2018-10-10] MEDS ORDERED: PROPOFOL EMUL 10MG/ML 20 ML VL IV ONE (11:05)
[2018-10-10] MEDS ORDERED: KETAMINE HCL 500 MG/5 ML VIAL IVP ONE (11:05)
--- NOTE | 2018-10-10 11:13 | RADIOLOGY IMAGING REPORT ---
FACILITY: [facility] PATIENT NAME: Kwabena Zambrano : 1935 MR: [id number] V: [id number] EXAM DATE: ORDERING PHYSICIAN: MAYLIN RAMÍREZ [place]CHN[place] [facility] [place] Kwab[place] Zam[place] : 1935 Visit/Account:[id number] Date of Sevice: 10/10/2018 Exam type: FOREARM LEFT History: Fall, left wrist pain and deformity Comparison: None. Findings: There is a severely comminuted impacted intra-articular fracture through the distal left radial metap hysis and epiphysis with dorsal angulation and dorsal displacement of multiple distal fracture fragme nts. There is also avulsion of the ulnar styloid. IMPRESSION: 1. Severely comminuted impacted intra-articular fracture through the distal left radius with dorsal angulation and dorsal displacement as described Avulsion of the ulnar styloid Report Dictated By: Lata Cobian MD at 10/10/2018 11:07 AM Report E-Signed By: Lata Cobian MD at 10/10/2018 11:09 AM WSN:[email or web address]
--- NOTE | 2018-10-10 11:18 | RADIOLOGY IMAGING REPORT ---
FACILITY: [facility] - [place] PATIENT NAME: Kwabena Zambrano : 1935 MR: [id number] V: [id number] EXAM DATE: ORDERING PHYSICIAN: MAYLIN RAMÍREZ TECHNOLOGIST: Location: [facility] Patient: Kwabena Zambrano : 1935 Visit/Account:[id number] Date of Sevice: 10/10/2018 Exam type: XR WRIST 3 OR MORE VIEWS LT History: Fall with left wrist pain and deformity Comparison: Left forearm performed today. Findings: Three views the left wrist were submitted. There is a severely comminuted impacted intra-articular f racture through the distal left radial metaphysis and epiphysis with dorsal angulation and dorsal dis placement of the distal fracture fragments.. There appears to be avulsion of ulnar styloid. Inciden tally noted are vascular calcifications in the adjacent soft tissues Fracture through the IMPRESSION: 1. Severely comminuted impacted intra-articular fracture to the distal left radius with dorsal regul ation dorsal displacement distal fragments Avulsion of the ulnar styloid Report Dictated By: Lata Cobian MD at 10/10/2018 11:09 AM Report E-Signed By: Lata Cobian MD at 10/10/2018 11:11 AM WSN:[email or web address]
--- NOTE | 2018-10-10 11:48 | EKG ---
FACILITY: [facility] [place] PATIENT NAME: FILIBERTO SCOTT : [id number] MR: [id number] V: [id number] EXAM DATE: ORDERING PHYSICIAN: MAYLIN RAMÍREZ TECHNOLOGIST: Test Reason : Blood Pressure : / mmHG Vent. Rate : 056 BPM Atrial Rate : 056 BPM P-R Int : 286 ms QRS Dur : 098 ms QT Int : 414 ms P-R-T Axes : 031 -15 -06 degrees QTc Int : 399 ms Sinus bradycardia with 1st degree AV block Otherwise normal ECG When compared with ECG of 26-JAN-2018 18:02, No significant change was found Confirmed by GRISELDA CLEMENS ([id number]) on 10/10/2018 6:40:25 PM Referred By: Confirmed By:GRISELDA CLEMENS
--- NOTE | 2018-10-10 12:11 | RADIOLOGY IMAGING REPORT ---
FACILITY: [facility] [place] PATIENT NAME: Kwabena Zambrano : 1935 MR: [id number] V: [id number] EXAM DATE: ORDERING PHYSICIAN: MAYLIN RAMÍREZ TECHNOLOGIST: Location: [facility] - [place] Patient: Kwabena Zambrano : 1935 Visit/Account:[id number] Date of Sevice: 10/10/2018 Exam type: XR WRIST 2 VWS LT History: post splint placement Comparison: October 10, 2018 at 11:31 AM. Findings: Two views the left wrist were submitted in fiberglass casting material. Again noted is the comminute d intraarticular fracture through the distal left radius which appears unchanged in alignment when co mpared to the postreduction images. Avulsion of the left ulnar styloid again noted IMPRESSION: 1. Left wrist is viewed through fiberglass casting material. The comminuted intra-articular fractur e through the distal left radius appears unchanged in alignment when compared to the postreduction vi ews. Avulsion of the ulnar styloid also again noted Report Dictated By: Lata Cobian MD at 10/10/2018 11:59 AM Report E-Signed By: Lata Cobian MD at 10/10/2018 12:01 PM WSN:[email or web address]
--- NOTE | 2018-10-10 12:11 | RADIOLOGY IMAGING REPORT ---
[place] [facility] [place]: Kwabena Zambrano : 1935 MR: [id number] V: [id number] EXAM DATE: ORDERING PHYSICIAN: MAYLIN RAMÍREZ TECHNOLOGIST: Location: [facility] - [place] Patient: Kwabena Zambrano : 1935 Visit/Account:[id number] Date of Sevice: 10/10/2018 Exam type: XR WRIST 2 VWS LT History: Post reduction Comparison: October 10, 2018 at 10:17 AM. Findings: Two views of the left wrist were submitted. Again noted is the severely comminuted impacted intra-ar ticular fracture to the distal left radius which has been reduced in improved anatomic alignment. Av ulsion of the ulnar styloid also again noted IMPRESSION: 1. There has been interval reduction of the severely comminuted impacted intra-articular fracture th rough the distal left radius which has been reduced in improved anatomic alignment Report Dictated By: Lata Cobian MD at 10/10/2018 11:58 AM Report E-Signed By: Lata Cobian MD at 10/10/2018 11:59 AM WSN:[email or web address]
[2018-10-10] MEDS ORDERED: LOR5/325 PO (12:20)
--- NOTE | 2018-10-10 12:52 | RADIOLOGY IMAGING REPORT ---
[place] [facility] [place] NAME: Kwabena Zambrano : 1935 MR: [id number] V: [id number] EXAM DATE: ORDERING PHYSICIAN: MAYLIN RAMÍREZ TECHNOLOG[place] [facility] [place]ab[place] Zambr[place] : 1935 Visit/Account:[id number] Date of Sevice: 10/10/2018 Exam type: L-SPINE 2 OR 3 VIEW History: Fall with back pain Comparison: None. Findings: There are five nonrib-bearing lumbar-type vertebral bodies present. There is a mild compression frac ture involving the super endplate of L1. No subluxations are seen. There is mild disc space narrowi ng at L3-4 and L4-5 and L5-S1. Mild vascular calcifications are incidentally noted in the abdominal aorta. There appears to be a moderate amount of fecal material throughout colon which can be seen wi th constipation IMPRESSION: 1. There is mild compression fracture along the superior endplate of L1 Moderate amount of fecal material throughout colon which can be seen with constipation Report Dictated By: Lata Cobian MD at 10/10/2018 12:43 PM Report E-Signed By: Lata Cobian MD at 10/10/2018 12:45 PM WSN:SUPA
[2018-10-10] MEDS ORDERED: APAP/HYDROCODONE 325/5 TAB PO ONE (13:05)
[2018-10-10 13:10] VITALS: BP 153/85
== END 2018-10-10 13:24 | disposition home or self-care (01) ==
LOC: ER 09:20
DX: S52.572A Other intraarticular fracture of lower end of left radius, initial encounter for closed fracture (principal); S32.010A Wedge compression fracture of first lumbar vertebra, initial encounter for closed fracture; W00.0XXA Fall on same level due to ice and snow, initial encounter; R00.1 Bradycardia, unspecified; I44.0 Atrioventricular block, first degree; Z79.01 Long term (current) use of anticoagulants
CPT/HCPCS: 25605; 70450; 72100; 73090; 73100; 73110; 85025; 85610; 85730; 93005; 96361; 96374; 96375; 99152; 99285; A4565; A9270; J2405; J2704; J3010; J7030; 82040; 82247; 82310; 82374; 82435; 82565; 82947; 84075; 84132; 84155; 84295; 84450; 84460; 84520

== ENCOUNTER → 2018-10-15 | Outpatient (CLI) | payer MEDICARE ==
[~2018-10-15] MED LIST changes: +LAC100PT PO; +LOR5/325 PO
[2018-10-15 07:53] LABS: PLATELET COUNT, AUTOMATED 247 K/uL (150-450)
== END ==
LOC: LAB 07:18
PROVIDERS: ATTEND Orthopaedic Surgery Hand Surgery
DX: Z01.812 Encounter for preprocedural laboratory examination (principal); I10 Essential (primary) hypertension; E03.9 Hypothyroidism, unspecified; S62.92XA Unspecified fracture of left hand, initial encounter for closed fracture
CPT/HCPCS: 36415; 80177; 82040; 82247; 82310; 82374; 82435; 82565; 82947; 84075; 84132; 84155; 84295; 84443; 84450; 84460; 84520; 85025

== ENCOUNTER → 2018-10-17 | Day surgery (SDC) | payer MEDICARE ==
[~2018-10-17] VITALS: Ht 177.8 cm; Wt 77.6 kg
[~2018-10-17] MED LIST changes: +APAP/HYDROCODONE 325/5 TAB ONE; +BACITRACIN OINT 15 GM TUBE TP ONE; +CELECOXIB 200 MG CAP PO ONE; +CEPH500T7 PO; +DEXAMETHASONE SOD 4 MG/ML VIAL ONE; +FAMOTIDINE 20 MG TAB PO ONE; +HYDR-385 PO; +LIDOCAINE 2% IV 100 MG/5ML SYR ONE; +LIDOCAINE/SOD BICARB 8.4% SYR ID ONE; +MIDAZOLAM 2 MG/2 ML VIAL IVP PRN; +ONDANSETRON 4 MG/2 ML VIAL ONE; +PROPOFOL EMUL(*) 10MG/ML 20 ML 20 ML ONE; +ROPIVACAINE 0.2% 20 ML VIAL ONE; +ceFAZolin(*) 1 GM VIAL 1 GM in NS(*) 0.9% 100 ML ADDVANT BAG 100 ML IVPB ONE; +fentaNYL CITR 100 MCG/2 ML AMP ONE; +fentaNYL CITR 250 MCG/5 ML AMP ONE
[2018-10-17] MEDS: NORMOSOL R SOLN(*) 1000 ML BAG 1,000 ML IV PRN ×2 (11:02→15:50)
[2018-10-17 11:59] VITALS: BP 148/83
--- NOTE | 2018-10-17 16:24 | OPERATIVE REPORT 1 ---
EVENT DATE: October 17, 2018 SURGEON: Solomon Sim MD ANESTHESIOLOGIST: Thong Abbott MD ANESTHESIA: General. 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 POSTOPERATIVE DIAGNOSIS Comminuted multi-part intra-articular distal radius fracture with basilar ulnar styloid fracture and possible distal radioulnar joint disruption with extension of fracture down shaft of radius. PROCEDURES PERFORMED 1. Open reduction and internal fixation of multi-part intra-articular distal radius fracture (50148). 2. Percutaneous fixation of distal radioulnar joint dislocation (79263). 3. Intraoperative radiography for hardware placement and reduction (05740). ESTIMATED BLOOD LOSS 50 INTRAVENOUS FLUIDS 1000 TOURNIQUET TIME 101 SPECIMENS No specimens. COMPLICATIONS No complications. IMPLANTS USED Two 0.045-inch K-wires, two 0.062-inch K-wires, and a standard with long [place] volar wrist plate. SUMMARY OF PROCEDURE The patient was brought into the operating room and placed on the OR table in the supine position. After obtaining adequate general anesthesia, the left upper extremity was prepped and draped in the usual sterile fashion. The limb was exsanguinated, and the tourniquet was inflated. We started with the standard volar incision, identifying the flexor carpi radialis and retracting it on a [place] drain. The floor of the FCR sheath was opened. I then identified the FPL and mobilized it toward the ulnar side. The pronator quadratus already had a split, and we extended that proximally and then opened up the capsule. Unfortunately, there was extensive comminution with severe shift within the joint such that the articular surface was not even close to lined up anymore. For example, the volar ulnar fragment was pushed down about 50% into the metaphysis. It took several attempts to try to get any type of a provisional reduction. We used a dental pick to try to elevate the volar ulnar fragment and then try to pin it, but multiple times the pins would fail to support the fracture. Ultimately, we were able to get adequate fixation with percutaneous pins holding it temporarily. We applied the [place] plate. We selected a standard width long because upon doing the re-stripping on the volar aspect of the radius, it became apparent that there was a longitudinal fracture extending down into the radius shaft that was nondisplaced, but it would be something that would have to get fixation proximal. We temporarily pinned the plate and then checked it on C-arm. It was a bit too distal, so we advanced it more proximally, retightened the screw, checked again, and it was acceptable. We then began placing the distal screws. Some were threaded. Some were smooth. We repeatedly used fluoroscopy in multiple projections to confirm that the reduction was acceptable and that the hardware was appropriately positioned immediately beneath the articular surface for maximum support. One of the pins needed to be polyaxial to get over to the ulnar side fragment. We also fixated the shaft with three screws, but we had to skip the fourth because it was right in the middle of the longitudinal fracture. In order to assist with the stabilization of the articular surface, I also placed two 0.045-inch K-wires from radial to ulnar, stopping right at the sigmoid notch. We then tested the distal radioulnar joint, which was found to be unstable. Consequently, we reduced it in neutral and then pinned with two 0.062-inch K-wires from the ulna to the radius. I intentionally went through the far cortex of the radius and left them slightly proud there so if they broke in the interosseous membrane, we could still retrieve them easily. The wound was irrigated. We deflated the tourniquet, controlled bleeding with bipolar cautery, closed the capsular tissue that was opened for exposure of the joint to allow for adequate alignment, and then left the pronator quadratus as it was. Nylon was used to close the skin. Ropivacaine was injected. He was given a dry, sterile dressing and a long-arm splint holding him in neutral. He was then awakened and transferred to the post-anesthesia care unit in stable condition. JAMES
[2018-10-17 17:00] VITALS: BP 149/88
[2018-10-17 17:30] VITALS: BP 149/89
[2018-10-17 18:00] VITALS: BP 137/87
[2018-10-17 18:04] VITALS: BP 143/132
--- NOTE | 2018-10-17 18:24 | NUR ---
1800: ORTHOSTATIC BP STARTED 1805: PT IN RESTROOM 180: PT HELPED DRESSING, 182: IV DC'ED BY SUPRIYA CORADO MINIMAL DISCOMFORT, PRESSURE DRESSING APPLIED. 183: DISCHARGE INSTRUCTIONS GIVEN TO SON, AND PT 184: PT TAKEN TO CAR BY SUPRIYA CORADO
== END ==
LOC: OR 01:21
PROVIDERS: ATTEND Orthopaedic Surgery Hand Surgery
DX: S52.571A Other intraarticular fracture of lower end of right radius, initial encounter for closed fracture (principal); S52.391A Other fracture of shaft of radius, right arm, initial encounter for closed fracture; W00.0XXA Fall on same level due to ice and snow, initial encounter; I10 Essential (primary) hypertension; Z86.73 Personal history of transient ischemic attack (TIA), and cerebral infarction without residual deficits
CPT/HCPCS: 25609; 25671; A9270; J0690; J1100; J2001; J2405; J2704; J2795; J3010; J7050; 76000; A4565; C1713

== ENCOUNTER → 2018-12-19 | Outpatient (CLI) | payer MEDICARE ==
[~2018-12-19] MED LIST changes: -APAP/HYDROCODONE 325/5 TAB ONE; -BACITRACIN OINT 15 GM TUBE TP ONE; -CELECOXIB 200 MG CAP PO ONE; -DEXAMETHASONE SOD 4 MG/ML VIAL ONE; -FAMOTIDINE 20 MG TAB PO ONE; -LIDOCAINE 2% IV 100 MG/5ML SYR ONE; -LIDOCAINE/SOD BICARB 8.4% SYR ID ONE; -MIDAZOLAM 2 MG/2 ML VIAL IVP PRN; -ONDANSETRON 4 MG/2 ML VIAL ONE; -PROPOFOL EMUL(*) 10MG/ML 20 ML 20 ML ONE; -ROPIVACAINE 0.2% 20 ML VIAL ONE; -ceFAZolin(*) 1 GM VIAL 1 GM in NS(*) 0.9% 100 ML ADDVANT BAG 100 ML IVPB ONE; -fentaNYL CITR 100 MCG/2 ML AMP ONE; -fentaNYL CITR 250 MCG/5 ML AMP ONE
[2018-12-19 17:45] LABS: PLATELET COUNT, AUTOMATED 216 K/uL (150-450)
== END ==
LOC: LAB 17:26
PROVIDERS: ATTEND Orthopaedic Surgery Hand Surgery
DX: M25.432 Effusion, left wrist (principal)
CPT/HCPCS: 36415; 85025; 85651; 86140

== ENCOUNTER → 2018-12-31 | Outpatient (CLI) | payer MEDICARE ==
[~2018-12-31] MED LIST changes: +ASPI-1471 PO
[2018-12-31 14:34] LABS: PLATELET COUNT, AUTOMATED 240 K/uL (150-450)
[2018-12-31 14:39] LABS: LDL CHOLESTEROL 49 mg/dl
== END ==
LOC: LAB 13:57
PROVIDERS: ATTEND Internal Medicine
DX: E03.9 Hypothyroidism, unspecified (principal); S62.109A Fracture of unspecified carpal bone, unspecified wrist, initial encounter for closed fracture; I25.10 Atherosclerotic heart disease of native coronary artery without angina pectoris; M25.442 Effusion, left hand; E78.5 Hyperlipidemia, unspecified; I10 Essential (primary) hypertension
CPT/HCPCS: 36415; 81001; 84443; 84550; 85025; 85651; 86038; 86140; 86200; 86430; G0103; 82040; 82247; 82310; 82374; 82435; 82465; 82565; 82947; 83718; 84075; 84132; 84153; 84155; 84295; 84450; 84460; 84478; 84520

== ENCOUNTER → 2019-04-13 | Outpatient (CLI) | payer MEDICARE ==
[~2019-04-13] MED LIST changes: +LOSA-57 PO; +LOSA25TA57 PO
[2019-04-13 14:45] LABS: PLATELET COUNT, AUTOMATED 206 K/uL (150-450)
== END ==
LOC: LAB 13:59
PROVIDERS: ATTEND Internal Medicine
DX: E03.9 Hypothyroidism, unspecified (principal); I25.10 Atherosclerotic heart disease of native coronary artery without angina pectoris; R60.9 Edema, unspecified; R06.00 Dyspnea, unspecified
CPT/HCPCS: 36415; 82040; 82247; 82310; 82374; 82435; 82565; 82728; 82947; 83540; 83550; 83880; 84075; 84132; 84155; 84295; 84450; 84460; 84520; 85025

== ENCOUNTER → 2019-04-17 | Outpatient (CLI) | payer MEDICARE | LOC: RAD 01:19 | PROVIDERS: ATTEND Internal Medicine | DX: R60.0 Localized edema (principal); I25.10 Atherosclerotic heart disease of native coronary artery without angina pectoris | CPT/HCPCS: 93306 ==

== ENCOUNTER → 2019-05-06 | Outpatient (CLI) | payer MEDICARE ==
[~2019-05-06] MED LIST changes: +LOSA-54 PO
[2019-05-06 15:25] LABS: PLATELET COUNT, AUTOMATED 206 K/uL (150-450)
== END ==
LOC: LAB 15:06
PROVIDERS: ATTEND Internal Medicine
DX: E03.9 Hypothyroidism, unspecified (principal); I25.10 Atherosclerotic heart disease of native coronary artery without angina pectoris; R60.9 Edema, unspecified
CPT/HCPCS: 36415; 82040; 82247; 82310; 82374; 82435; 82565; 82947; 84075; 84132; 84155; 84295; 84450; 84460; 84520; 85025